=== PATIENT | female | born 1975 | race Caucasian/White ===

== ENCOUNTER 2016-05-24 11:04 | Outpatient (CLI) | payer MEDICAID ==
[~2016-05-24] VITALS: Ht 152.4 cm; Wt 73.9 kg
[~2016-05-24 11:04] MED LIST: CEPH-443 PO; PRENAT PO
[2016-05-24 11:25] VITALS: Ht 152.4 cm; Wt 73.9 kg
[2016-05-24 11:26] VITALS: BP 113/60; PULSE 74
--- NOTE | 2016-05-24 13:01 | RADRPT ---
PROCEDURE: US OB biophysical profile. CLINICAL INDICATION: decreased movements, labor TECHNIQUE: Multiple sonographic images of the pelvis were obtained. The images were reviewed on a PACS workstation. COMPARISON: No prior studies are available for comparison. FINDINGS: There is a single viable intrauterine gestation. Cardiac activity is present with 158 beats per min [place]. There is a vertex presentation. The placenta is posterior. There is no evidence of placental abruption. There is a normal amount of amniotic fluid with an RAMON = 12.3 cm. Biophysical profile: movement 2/2 tone 2/2. breathing 2/2 RAMON 2/2 Total 09/25 RPTAT: AA . IMPRESSION: Normal biophysical profile. . .Marty Masters MD, Date Time Electronically viewed and signed by .Marty Masters MD, MD on 05/24/2016 13:00 .S/
--- NOTE | 2016-05-24 13:38 | CONS ---
Date/Time of Note Date/Time of Note DATE: 05/24/16 TIME: 13:31 Consultation Date/Type/Reason Admit Date/Time May 24, 2006 OB triage consult Reason for Consultation This patient is a 40 years old 8 para 6 1 "old her deliveries vaginally EDC is 07/22/2016 which makes her 31 weeks and 4 She came to the OB triage clinic complaining of a right arm numbness for 2 days On examination she appears to be a well-developed well-nourished lady at the mid third Her vital signs were normal blood pressure 113/60 pulse rate 74 respiration 18 temperature 98 point On physical exam her ear nose throat appears to be normal neck was normal no neck vein distention no thyromegaly no lymph node enlargement anywhere her chest was clear heart normal sinus rhythm no murmur S were soft abdomen was soft and measures about 32 cm baby appears to have vertex presentation no contraction at this time heart tone was normal on examination her right arm no abnormal findings no lymph node enlargement in the axillary area lower extremities were normal no edema on pelvic exam was not performed because she had no contraction we ordered an ultrasound study this is a study good result with a single viable intrauterine gestation with heart rate of 158 vertex presentation placenta was posterior amniotic fluid index was 12.3 cm her NST appears to be normal Constitutional: No chills, No diaphoresis, No disoriented, No febrile, No improved, No no complaints, No other, No poor po, No requiring IVF, No requiring O2 Eyes: No discharge, No no complaints, No other, No pain, No redness, No visual change ENT: No bleeding, No congestion, No discharge, No dysphagia, No no complaints, No other, No pain, No sore throat Respiratory: No cough, No no complaints, No other, No pain, No pleuritic pain, No shortness of breath, No sputum, No wheezing Cardiovascular: No chest pain, No edema, No lightheadedness, No no complaints, No orthopenea, No other, No palpitations, No paroxysmal nocturnal dyspnea Gastrointestinal: No blood, No constipation, No decreased appetite, No diarrhea , No flatus, No nausea, No no complaints, No other, No pain, No passing stool, No vomiting Genitourinary: No bleeding, No discharge, No dysuria, No flank pain, No hematuria, No no complaints, No other Musculoskeletal: other (She is complaining of numbness on her right arm. No abnormality on physical findings), No back pain, No bone/joint pain, No neck pain, No no complaints, No restricted range of motion, No swelling Skin: No bruising, No erythema, No laceration, No no complaints, No other, No pruritis, No rash, No skin lesions Neurologic: other (Her knee jerk reflex appears to be normal), No confusion, No dizziness, No focal-weakness, No headache, No no complaints , No seizure, No syncope Endocrine: No dry skin, No no complaints, No other, No polydypsia, No polyuria , No temp intolerance Additional Comments Disposition with these negative findings patient is discharged and she will go down to emergency room for further neurological evaluation Social History Smoking Status: Never smoker Exam/Review of Systems Vital Signs Vitals Vital Signs Date Time Temp Pulse Resp B/P Pulse Ox O2 Delivery O2 Flow Rate FiO2 05/24/16 11:26 98.2 74 113/60 JEROMY AQUINO MD May 24, 2016 13:38
== END 2016-05-24 13:32 | disposition home or self-care (01) ==
LOC: OBT 11:04 → L-D 11:05 → OBT 13:32
PROVIDERS: ATTEND Obstetrics & Gynecology
DX: O26.893 Other specified pregnancy related conditions, third trimester (principal); R20.0 Anesthesia of skin; O36.8130 Decreased fetal movements, third trimester, not applicable or unspecified; Z3A.31 31 weeks gestation of pregnancy
CPT/HCPCS: 76818; Z7500; G0463

== ENCOUNTER 2016-05-24 13:38 | Emergency (ER) | payer MEDICAID ==
[~2016-05-24] VITALS: Wt 82.0 kg
--- NOTE | 2016-05-24 15:34 | EN ---
Date/Time of Note Date/Time of Note DATE: 05/24/16 TIME: 15:33 ER Progress Note Rapid medical evaluation note: 40-year-old female presents to the emergency department with bilateral arm numbness, she is currently 32 weeks and was cleared by OB. Patient was worried about "circulation". I offered her an Accu-Chek and further evaluation, she will be seen and evaluated in emergency Department 2. JANN RAVI PA-C May 24, 2016 15:34
--- NOTE | 2016-05-24 16:59 | RADRPT ---
PROCEDURE: US upper extremity Venous. CLINICAL INDICATION: Bilateral arm pain and numbness TECHNIQUE: Multiple sonographic images of the bilateral upper extremity venous system was obtained utilizing grayscale, color-flow, compressive sonography and doppler imaging with augmentation. The images were reviewed on a PACS workstation. COMPARISON: None. FINDINGS: There is normal compressibility and flow within the bilateral internal jugular vein, subclavian vein , axillary vein, brachial, basilic, cephalic, radial and ulnar veins. RPTAT: AA IMPRESSION: No sonographic evidence for venous thrombosis. .Marty Masters MD, MD Date Time Electronically viewed and signed by .Marty Masters MD, MD on 05/24/2016 16:59 .S/
--- NOTE | 2016-05-24 17:43 | ERD ---
ER Documentation Chief Complaint Date/Time DATE: 05/24/16 TIME: 17:38 Chief Complaint BILATERAL HAND NUMBNESS X 1 WEEK 32 WEEKS PREG CLEARED BY OB HPI Patient is a 40-year-old female who is with a last normal menstrual period of 10/16/15 who is approximately 32 weeks who presents to the ED with bilateral hand numbness and right arm swelling. She states that for the last month she developed tingling at her right fingertips and now feels that her arm is swollen and the numbness and tingling is radiating up. She also states that she has numbness and tingling in her left fingers. She denies any new onset trauma. Denies chest pain, cough, shortness of breath or difficulty breathing. Denies leg pain or swelling. Denies fever or chills. Denies abdominal pain, nausea, vomiting or diarrhea. Denies pelvic pain, vaginal bleeding or cramping. Denies headache or dizziness. OB doctor: Dr. Desire MARIN All systems reviewed and are negative except as per history of present illness. Medications Home Meds Reported Medications Multivit/Min/Fol Ac/Iron/Pren* ( S*) 1 Tab Tab, 1 TAB PO DAILY, TAB 03/10/14 Discontinued Scripts Cephalexin* (Keflex*) 500 Mg Capsule, 500 MG PO QID for 10 Days, CAP Prov:BRIAN BERMUDEZ DO 12/01/15 Allergies Allergies: Coded Allergies: No Known Allergy (Unverified , 03/10/14) PMhx/Soc History of Surgery: Yes (BREAST CYSTECTOMY) Anesthesia Reaction: No Hx Neurological Disorder: No Hx Respiratory Disorders: No Hx Cardiac Disorders: No Hx Psychiatric Problems: No Hx Miscellaneous Medical Probl: No Hx Alcohol Use: No Hx Substance Use: No Hx Tobacco Use: No FmHx Family History: No coronary disease, No diabetes, No other Physical Exam Vitals Vital Signs Date Time Temp Pulse Resp B/P Pulse Ox O2 Delivery O2 Flow Rate FiO2 05/24/16 13:42 98.0 82 18 111/63 99 Physical Exam GENERAL: Well-developed, well-nourished female. Appears in no acute distress. HEAD: Normocephalic, atraumatic. EYES: Pupils are equally reactive bilaterally. EOMs grossly intact. No conjunctival erythema. ENT: Moist mucous membranes. No uvula deviation. No kissing tonsils. No exudates. NECK: Supple. No lymphadenopathy or thyromegaly. No meningismus. negative kernig. negative brudinski. LUNG: Clear to auscultation bilaterally. No rhonchi, wheezing, rales or coarse breath sounds. HEART: Regular rate and rhythm. No murmurs, rubs or gallops. Extremities: Equal pulses bilaterally. No peripheral clubbing, cyanosis or edema. No unilateral leg swelling. NEUROLOGIC: Alert and oriented. Moving all four extremities. Diminished strength in the right hand.. Normal speech. Steady gait. Slightly edematous right arm. Pulses intact bilaterally. No erythema or warmth. No fluctuance or induration. Range of motion intact. SKIN: Normal color. Warm and dry. No rashes or lesions. Capillary refill < 2 seconds Results 24 hrs Laboratory Tests Test 05/24/16 16:03 Bedside Glucose 67mg/dL Procedures/MDM ER COURSE: I kept the patient and/or family informed of laboratory and diagnostic imaging results throughout the emergency room course. IMAGING STUDIES [place] [address] Radiology Main Line: [phone] DIAGNOSTIC IMAGING REPORT Patient: MILTON RASHID : 1975 Age: 40 Sex: F MR #: [id number] DOS: 05/24/16 [facility] Ordering MD: KAYLYNN ZAMBRANO PA-C Location: FTE Room/Bed: PROCEDURE: US upper extremity Venous. CLINICAL INDICATION: Bilateral arm pain and numbness TECHNIQUE: Multiple sonographic images of the bilateral upper extremity venous system was obtained utilizing grayscale, color-flow, compressive sonography and doppler imaging with augmentation. The images were reviewed on a PACS workstation. COMPARISON: None. FINDINGS: There is normal compressibility and flow within the bilateral internal jugular vein, subclavian vein, axillary vein, brachial, basilic, cephalic, radial and ulnar veins. RPTAT: AA IMPRESSION: No sonographic evidence for venous thrombosis. .Marty Masters MD, MD Date Time Electronically viewed and signed by .Marty Masters MD, MD on 05/24/2016 16: 59 .S/ CC: KAYLYNN ZAMBRANO PA-C EKG performed, read by Dr. Mello 72 bpm, normal sinus rhythm, normal axis, no acute ST segment changes, no T wave inversion Repeat Accu-Chek was 113. MEDICAL DECISION MAKING: This is a 40-year-old female who is was approximately 32 weeks who presents to the ED with bilateral arm numbness and right arm swelling. Vital signs were reviewed. Patient is afebrile. Patient is not hypoxic. Patient is not toxic or ill-appearing. I consulted with Dr. Mello regarding this patient. Ultrasound is read by radiologist is unremarkable. Her Accu- Chek is within normal limits and her EKG is within normal limits. Low suspicion for ACS, PE, AAA, dissection, DVT. Low suspicion for preeclampsia, eclampsia, hypoglycemia, hyperglycemia, DKA, DVT, cellulitis, abscess. Low suspicion for intracranial hemorrhage, meningitis, intracranial mass, concussion , temporal arteritis, stroke, elevated intracranial pressure, seizure, fracture , dislocation. DISCHARGE: At this time, patient is stable for discharge and outpatient management with no new complaints during the ER course. Patient was sent home with copy of EKG and imaging studies and to follow-up with her OB doctor tomorrow. I explained all results with patient. Patient understood and agreed with plan and will follow up with OB tomorrow.. Patient will be discharged home with instructions to recheck for new or worsening symptoms such as fever, nausea, weakness, LOC and to follow up with primary care in the next 1-2 days. Patient was advised to return to the ER for any new or worsening symptoms. Plan was discussed and patient and/or family understands and agrees. Home instructions were given. Departure Diagnosis: Primary Impression: Arm pain Laterality: bilateral Qualified Code: M79.601 - Pain in both upper extremities Condition: Stable Patient Instructions: Numbness Additional Instructions: Llame al doctor MARBELLA y marquita faina CRUZ PARA DENTRO DE 1-2 [place].Dgale a la secretaria que nosotros le instruimos hacer esta cruz.Avise o llame si perea condicin se empeora antes de la cruz. Regresa aqui si peor o no mejor. KAYLYNN ZAMBRANO PA-C May 24, 2016 17:43
== END 2016-05-24 17:42 | disposition home or self-care (01) ==
LOC: E/R 13:38 → FTE 17:42
DX: O99.89 Other specified diseases and conditions complicating pregnancy, childbirth and the puerperium (principal); M79.601 Pain in right arm; M79.602 Pain in left arm; Z3A.32 32 weeks gestation of pregnancy
CPT/HCPCS: 82962; 93005; 93970; Z7502

== ENCOUNTER 2016-07-14 11:58 | Inpatient (IN) | payer MEDICAID ==
[~2016-07-14] VITALS: Ht 152.4 cm; Wt 75.4 kg
[~2016-07-14 11:58] MED LIST changes: -CEPH-443 PO
[2016-07-14 12:01] VITALS: BP 108/62; PULSE 97; RESP 20
[2016-07-14] MEDS ORDERED: OXYTOCIN 30 UNITS/LR 500 ML IV SCH ×2 (13:30)
[2016-07-14] MEDS ORDERED: IBUPROFEN 600 MG TAB PO PRN (13:30)
[2016-07-14] MEDS ORDERED: OXYTOCIN 30 UNITS/LR 500 ML IV PRN ×2 (13:30→21:00)
[2016-07-14] MEDS ORDERED: METHYLERGONOVINE 0.2 MG INJ IM PRN ×2 (13:30→21:00)
[2016-07-14] MEDS ORDERED: CARBOPROST 250 MCG INJ IM PRN ×2 (13:30→21:00)
[2016-07-14] MEDS ORDERED: MISOPROSTOL 200 MCG TAB PR PRN ×2 (13:30→21:00)
[2016-07-14] MEDS ORDERED: LIDOCAINE 1% (MPF) 30 ML INJ INJ PRN (13:30)
[2016-07-14] MEDS ORDERED: BUTORPHANOL 2 MG INJ IV PRN ×2 (13:30)
[2016-07-14] MEDS: LACTATED RINGER'S 1,000 ML IV SCH ×2 (13:34→21:55)
[2016-07-14 13:55] LABS: ADD SCAN DIFF NO
[2016-07-14 13:58] LABS: BASOPHILS % 0.4 % (0.0-2.0); EOSINOPHILS # 0.2 10^3/ul (0.0-0.5); EOSINOPHILS % 2.3 % (0.0-7.0); HEMATOCRIT 35.3 % (37.0-47.0); HEMOGLOBIN 12.1 g/dl (12.0-16.0); LYMPHOCYTES % 20.4 % (15.0-51.0); MEAN CORPUSCULAR HGB CONC 34.3 g/dl (32.0-37.0); MEAN CORPUSCULAR VOLUME 96.2 fl (82.0-101.0); MEAN PLATELET VOLUME 10.1 fl (7.4-10.4); MONOCYTE # 0.7 10^3/ul (0.3-0.9); MONOCYTES % 7.2 % (0.0-11.0); NEUTROPHIL # 6.9 10^3/ul (1.6-7.5); NEUTROPHILS % 69.3 % (39.0-77.0); PLATELET COUNT 228 10^3/UL (140-415); RED BLOOD COUNT 3.67 10^6/ul (4.20-5.40)
[2016-07-14 14:13] LABS: INR 1.02; PROTIME 13.4 Sec (12.2-14.2)
[2016-07-14 14:14] LABS: PARTIAL THROMBOPLASTIN TIME 29.1 Sec (25.0-35.0)
[2016-07-14] MEDS ORDERED: LACTATED RINGER'S 1,000 ML IV PRN (15:00)
--- NOTE | 2016-07-14 17:29 | HP ---
Date/Time of Note Date/Time of Note DATE: 07/14/16 TIME: 17:23 OB - History Hx of Present Free Text/Dictation 40 y.o A1 had x6 here with c/o uterine contractions q3-5min for 8 hrs with intact membrane VE 3cm 90% -2 GBS neg admitted for expectant management Chief Complaint: UCs Estimated Due Date: Jul 22, 2016 : 8 Para: 6 Spontaneous : 1 Therapeutic : 0 Care: Good Care Ultrasounds: Normal mid trimester US Medical Complications: None Past Family/Social History * Past Medical, Surgical, Family and Obstetric Histories reviewed from chart. Blood Type: O+ Rubella: immune RPR/VDRL: Negative GBS Status: Negative HBsAG: Negative OB Admission Exam Vital Signs Vital Signs Vital Signs Date Time Temp Pulse Resp B/P Pulse Ox O2 Delivery O2 Flow Rate FiO2 07/14/16 12:01 97.7 97 20 108/62 Room Air Physical Exam HEENT: WNL Heart: Rhythm Normal Lungs: Clear, Equal Abdomen: WNL Extremities: Normal Reflexes: Normal Effacement: Other (90% ) Membranes: Intact (90%) Amniotic Fluid: Unevaluable Heart Rate: 140's Accelerations: Accelerations Present Decelerations: No Decelerations Varibility: Moderate Contractions on Admission: < 5 Minutes Apart Intensity: Moderate Last 72 hours Lab Results CBC & BMP 07/14/16 13:00 OB Assessment/Plan Reason for admission: active labor Other Assessment: [id number] Plan: Expectant Management MARISSA STOKES MD July 14, 2016 17:29
--- NOTE | 2016-07-14 17:47 | LDN ---
Date/Time of Note Date/Time of Note DATE: 07/14/16 TIME: 17:45 Delivery Summary normal vaginal delivery Weeks of Gestation 38w6d Placenta Delivered: Spontaneously Meconium: none Episiotomy: No Perineal laceration: 0 Anesthesia type: None Estimated blood loss: 200 Sponge & Needle done & correct: Yes All needle counts correct: Yes Any foreign bodies felt in the: No Problems: Delivery Information Sex Sex: male Apgars 1 Minute: 8 5 Minute: 9 10 Minute: 9 Suctioning Nose & mouth suctioned at aditya: Yes Delee suction performed: No Umbilical Cord Umbilical cord with: 3 Vessels Cord presentations: nuchal cord Nuchal cord present X: 1 Cord Blood was obtained: Yes Mother & Baby Disposition Disposition Mom & Baby to Maternity; Good: Yes Mom transferred to: Other () Baby to NICU: No MARISSA STOKES MD July 14, 2016 17:47
[2016-07-14] MEDS ORDERED: ACETAMINOPHEN/CODEINE #3 TAB PO PRN (18:00)
[2016-07-14 20:05] VITALS: BP 123/62; PULSE 72; RESP 19
[2016-07-14 20:35] VITALS: BP 123/68; PULSE 72; RESP 20
[2016-07-14] MEDS ORDERED: WITCH HAZEL/GLYCERIN PAD PR PRN (21:00)
[2016-07-14] MEDS ORDERED: LANOLIN 7 GM TUBE TOP PRN (21:00)
[2016-07-14] MEDS ORDERED: BENZOCAINE 20% 56 ML SPRAY TOP PRN (21:00)
[2016-07-14] MEDS: IBUPROFEN 600 MG TAB PO SCH ×2 (21:00→23:50)
[2016-07-14] MEDS ORDERED: ZOLPIDEM 5 MG TAB PO PRN (21:00)
[2016-07-14] MEDS ORDERED: OXYCODONE/ASPIRIN (4.88/325) TAB PO PRN ×2 (21:00)
[2016-07-14] MEDS: SENNA/DOCUSATE NA (8.6MG/50MG) TAB PO SCH (21:18)
[2016-07-15 04:00] VITALS: BP 131/61; PULSE 74; RESP 20
[2016-07-15] MEDS: LACTATED RINGER'S 1,000 ML IV SCH ×2 (05:06→13:06)
[2016-07-15] MEDS: IBUPROFEN 600 MG TAB PO SCH ×4 (05:56→23:31)
[2016-07-15 06:30] LABS: ADD SCAN DIFF NO
[2016-07-15 06:45] LABS: ABNORMAL IP MESSAGE 1; BASOPHIL # 0.1 10^3/ul (0.0-0.1); BASOPHILS % 0.3 % (0.0-2.0); EOSINOPHILS # 0.3 10^3/ul (0.0-0.5); EOSINOPHILS % 2.1 % (0.0-7.0); HEMOGLOBIN 12.2 g/dl (12.0-16.0); LYMPHOCYTES # 2.9 10^3/ul (0.8-2.9); LYMPHOCYTES % 18.3 % (15.0-51.0); MEAN CORPUSCULAR HEMOGLOBIN 33.1 pg (29.0-33.0); MEAN CORPUSCULAR HGB CONC 33.9 g/dl (32.0-37.0); MEAN CORPUSCULAR VOLUME 97.6 fl (82.0-101.0); MEAN PLATELET VOLUME 10.4 fl (7.4-10.4); MONOCYTE # 1.5 10^3/ul (0.3-0.9); MONOCYTES % 9.6 % (0.0-11.0); NEUTROPHILS % 69.1 % (39.0-77.0); PLATELET COUNT 210 10^3/UL (140-415); RED BLOOD COUNT 3.69 10^6/ul (4.20-5.40); RED CELL DISTRIBUTION WIDTH 13.2 % (11.5-14.5); WHITE BLOOD COUNT 15.9 10^3/ul (4.8-10.8)
[2016-07-15 07:30] VITALS: BP 118/65; PULSE 53; RESP 17
[2016-07-15] MEDS: SENNA/DOCUSATE NA (8.6MG/50MG) TAB PO SCH ×2 (08:41→20:42)
[2016-07-15 16:00] VITALS: BP 107/62; PULSE 57; RESP 18
[2016-07-15 20:00] VITALS: BP 106/61; PULSE 68; RESP 18
[2016-07-16 03:45] VITALS: BP 118/79; PULSE 57; RESP 18
[2016-07-16] MEDS: IBUPROFEN 600 MG TAB PO SCH ×3 (05:44→18:09)
[2016-07-16 08:00] VITALS: BP 113/70; PULSE 61; RESP 18
[2016-07-16] MEDS ORDERED: DIPHTH/TET/ACEL PERTUSS (ADULT) 0.5 ML VIAL IM* ONE (09:00)
[2016-07-16] MEDS: SENNA/DOCUSATE NA (8.6MG/50MG) TAB PO SCH (12:34)
[2016-07-16 16:16] VITALS: BP 103/57; PULSE 64; RESP 18
--- NOTE | 2016-07-16 18:45 | DS ---
Date/Time of Note Date/Time of Note DATE: 07/16/16 TIME: 18:44 Obstetrical Discharge Record Final Diagnosis Final Diagnosis: Term delivered Vaginal Delivery Obstetrical Delivery: Spontaneous Complications Augmentation: No Induction: No Condition on Discharge Physical Assessment Last Vitals: vss afebrile fundus firm lochia min ext nl Voiding: Yes Bowel Movement: Yes Breast: Soft, non-tender Fundus: Firm Calf Tenderness: No Patient Condition: Stable MARISSA STOKES MD July 16, 2016 18:45
--- NOTE | 2016-07-16 18:48 | PD.PPDC ---
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
== END 2016-07-16 19:50 | disposition home or self-care (01) | DRG 775 ==
LOC: L-D 11:58 → OBT 11:58 → L-D 13:17 → PP1 20:06
PROVIDERS: ADMIT Obstetrics & Gynecology; ATTEND Obstetrics & Gynecology
PROC: 10E0XZZ Delivery of Products of Conception, External Approach (ICD-10-PCS; principal; 2016-07-14)
DX: O69.1XX0 Labor and delivery complicated by cord around neck, with compression, not applicable or unspecified (principal); Z37.0 Single live birth; Z3A.38 38 weeks gestation of pregnancy
CPT/HCPCS: 85025; 85610; 85730; 86592; 86900; 86901; 87340; 90715; G0463; J0595; J2210; J2590; J7120

== ENCOUNTER 2017-05-05 22:02 | Emergency (ER) | END 2017-05-06 00:41 | disposition home or self-care (01) ==

== ENCOUNTER 2018-04-09 19:29 | Emergency (ER) | payer MEDICAID ==
[~2018-04-09] VITALS: Ht 157.5 cm; Wt 74.8 kg
[~2018-04-09 19:29] MED LIST changes: +HYDR-4011 PO; +METH750T93 PO; +NAPR-688 PO
[2018-04-09 19:35] VITALS: BP 123/77; PULSE 67; RESP 17; Ht 157.5 cm; Wt 74.8 kg
--- NOTE | 2018-04-09 20:35 | ERD ---
ER Documentation Chief Complaint Chief Complaint C/O COUGH, ACONGESTION AND BUSTILLO X3 DAYS HPI This is a 42-year-old female who presents here in emergency department with complaints of cough and congestion, with frontal headache for about 3 days. LMP: Stated that she is on it. . Denies headache, head injury, loss of consciousness, dizziness, neck pain, neck stiffness, throat pain, difficulty swallowing, difficulty breathing lying flat, shoulder pain, chest pain, back pain, abdominal pain, nausea, vomiting, constipation, diarrhea, urinary symptoms, or possibility being , loss of bowel and bladder control, trauma, injury, falls, difficulty walking due to pain, numbness or tingling sensation, calf pain, recent travel, recent major surgery in the last 3 weeks, calf pain, recent long travel, recent exposure to any illness, recent antibiotic use in the last 3 months, fever, chills, seizures. Past medical history: Surgical history: Social: Denies smoking, use of alcoholic beverages, use of illegal drugs. ROS All systems reviewed and are negative except as per history of present illness. Medications Home Meds Active Scripts Benzonatate* (Tessalon Perle*) 100 Mg Capsule, 100 MG PO Q8H PRN for COUGH, #15 CAP Prov:PASILABANOTONIEL F 04/09/18 Ibuprofen* (Motrin*) 800 Mg Tab, 800 MG PO Q6H PRN for PAIN AND OR ELEVATED TEMP, #30 TAB Prov:PASILABIBIANA HILTONAR F 04/09/18 Amoxicillin* (Amoxicillin*) 500 Mg Cap, 500 MG PO TID for 7 Days, CAP Prov:PASILABANOTONIEL F 04/09/18 Methocarbamol* (Robaxin*) 750 Mg Tablet, 750 MG PO Q6H PRN for MUSCLE SPASMS, #20 TAB Prov:SEBASTIAN QUINTERO DO 05/06/17 Hydrocodone/Acetaminophen ([place] 5-325 Tablet) 1 Each Tablet, 1 EACH PO Q6 for SEVERE PAIN LEVEL 7-10, #17 TAB Prov:SEBASTIAN QUINTERO DO 05/06/17 Naproxen* (Naproxen*) 500 Mg Tablet, 500 MG PO BID PRN for PAIN, #20 TAB Prov:SEBASTIAN QUINTERO DO 05/06/17 Reported Medications Multivit/Min/Fol Ac/Iron/Pren* ( S*) 1 Tab Tab, 1 TAB PO DAILY, TAB 03/10/14 Allergies Allergies: Coded Allergies: No Known Allergy (Unverified , 04/09/18) PMhx/Soc Medical and Surgical Hx: pt denies Medical Hx History of Surgery: Yes (BREAST CYSTECTOMY) Anesthesia Reaction: No Hx Neurological Disorder: No Hx Respiratory Disorders: No Hx Cardiac Disorders: No Hx Psychiatric Problems: No Hx Miscellaneous Medical Probl: No Hx Alcohol Use: No Hx Substance Use: No Hx Tobacco Use: No Smoking Status: Never smoker Physical Exam Vitals Vital Signs Date Temp Pulse Resp B/P (MAP) Pulse Ox O2 O2 Flow FiO2 Time Delivery Rate 04/09/18 97.8 67 17 123/77 99 19:35 (92) Physical Exam Const: No acute distress Head: Atraumatic Eyes: Normal Conjunctiva ENT: Normal External Ears, Nose and Mouth. Bilateral ears: TMs are mildly erythematous. No bleeding. No discharge with no hearing loss with no mastoid tenderness. Nose: There is frontal inferior sinus tenderness to palpation. Throat: Uvula is in midline and nondisplaced. Tonsils are +1 bilaterally witho ut redness without exudates. Tolerating secretions. Patent airway. Speaks full and clear sentences. Neck: Full range of motion. No meningismus. No nuchal rigidity. No signs of meningeal irritation. Resp: Clear to auscultation bilaterally Cardio: Regular rate and rhythm, no murmurs Abd: Soft, non tender, non distended. Normal bowel sounds Skin: No petechiae or rashes Back: No midline or flank tenderness Ext: No cyanosis, or edema Neur: Awake and alert. No neurological deficit. Psych: Normal Mood and Affect Procedures/MDM Diagnostic tests: Clinical exam. Treatment: Not applicable. Re-evaluation: Not in distress. Differential diagnosis I have low suspicion for sepsis, fevers respiratory infection, colitis, perito nsillar abscess, meningitis, airway obstruction, status asthmaticus, bronchospasm, severe dehydration. Final diagnosis: Sinusitis. Bronchitis. Prescription: Amoxicillin. Motrin. Tylenol. Tessalon Perles. Follow-up with PCP in the next 24-48 hours. Come back here in the emergency department for any new symptoms or any worsening symptoms. All questions and concerns were answered. Patient and family members verbalized understanding and agreed with plan of care. Hemodynamically stable on discharge. Departure Diagnosis: Primary Impression: Sinusitis Additional Impression: Bronchitis Condition: Stable Additional Instructions: Follow-up with PCP in the next 24-48 hours. Come back here in the emergency department for any new symptoms or any worsening symptoms. OTONIEL ENCISO Apr 09, 2018 20:35
[2018-04-09] MEDS ORDERED: IBUP800T48 PO (20:36)
[2018-04-09] MEDS ORDERED: AMOX500C2 PO (20:36)
[2018-04-09] MEDS ORDERED: BENZ-6 PO (20:37)
== END 2018-04-09 20:49 | disposition home or self-care (01) ==
LOC: FTE 19:29
DX: J32.9 Chronic sinusitis, unspecified (principal); J40 Bronchitis, not specified as acute or chronic
CPT/HCPCS: 99283